=== PATIENT | male | born 1985 | race Caucasian/White ===

== ENCOUNTER 2017-01-31 18:43 | Emergency (ER) | payer MEDICAID ==
--- NOTE | 2017-01-31 19:04 | EDPHY ---
H & P Stated Complaint: Low back pain ~5 mos;fell Tuesday while skateboarding and now it's worse HPI/ROS: CHIEF COMPLAINT: Low back pain HISTORY OF PRESENT ILLNESS: This patient is a healthy 31 year old male arriving today complaining of persistent lower back pain onset 5 months ago with an exacerbation following a fall off his skateboard two weeks ago. He states he has had several past injuries from various sports that have generally resolved in a few months. He has attempted to manage this current pain with acupuncture, Rolfing, massage, and chiropractic interventions, as well as occasional ibuprofen use. He describes his discomfort as dull pain and more like "tightness" at waist level on both sides. He states that he used to have sciatic pain. He currently endorses paresthesias to the back of his left leg above the knee. He denies incontinence, changes in urinary or bowel habits, fever, or other associated symptoms. REVIEW OF SYSTEMS: A ten point review of systems was performed and is negative with the exception of the items mentioned in the HPI. - Personal History Current Tetanus Diphtheria and Acellular Pertussis (TDAP): Yes - Medical/Surgical History PMH: Denies other than chronic back pain. 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 Lives alone. - Physical Exam Exam: General Appearance: Alert. Vital signs reviewed. Blood pressure 167/87, heart rate 112 at triage. Eyes: Pupils equal and round, no conjunctival injection, no discharge. Anicteric. ENT, Mouth: Mucous membranes are moist, no oropharyngeal erythema or edema. Neck: No lymphadenopathy, supple. Respiratory: Lungs are clear to auscultation; no wheezes, rales, or rhonchi. Cardiovascular: Regular rate and rhythm; no murmur, rub, or gallop. Not tachycardic at time of my evaluation. Gastrointestinal: Abdomen is soft and nontender, no masses or organomegaly, bowel sounds normal. Skin: Warm and dry, no rashes on exposed skin, normal color. Back: Nontender to palpation over the thoracolumbar spine. No CVAT. Extremities: No lower extremity edema, no calf tenderness or swelling. Neurological: Alert and oriented. Moving all four extremities easily and equally. No clonus. Strength is 5 over 5 bilaterally with testing of all major motor groups. Sensation is intact to light touch over all 4 extremities. Deep tendon reflexes are 2+ in the biceps and knees bilaterally. Gait is normal. Psychiatric: Normal affect. Constitutional: Initial Vital Signs Temperature (C) 36.7 C 01/31/17 18:45 Heart Rate 112 H 01/31/17 18:45 Respiratory Rate 18 01/31/17 18:45 Blood Pressure 167/87 H 01/31/17 18:45 O2 Sat (%) 97 01/31/17 18:45 O2 Delivery Mode Room Air Allergies/Adverse Reactions: No Known Allergies Allergy (Unverified 01/31/17 18:50) Home Medications: Medication Instructions Recorded NK [No Known Home Meds] 01/31/17 Medical Decision Making - Diagnostics Imaging Results: Lumbar spine x-ray reviewed by me in PACs. There is disc space narrowing at L5- S1. No fracture. Imaging: I viewed and interpreted images myself ED Course/Re-evaluation: This patient is a 31 year old male presenting with an acute exacerbation of his chronic back pain. The patient is insistent that he need an x-ray or an MRI for evaluation of his pain and for referral to a specialist. I explained the criteria for MRI in the emergency setting. Plan to order x-ray to rule out acute process, as he had a fall 2 weeks ago. X-ray lumbar spine read by Dr. Peralta, radiologist. 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 19:49 Reassessed patient. Discussed x-ray result. There is no evidence of an acute fracture. He does not have radicular signs. I do not suspect infection, such as pyelonephritis. He does not appear ill and I am not concerned about the possibility of infection, such as an epidural abscess. Plan to discharge home in good condition with referrals to [facility] as requested. Return precautions discussed. The patient is comfortable with this plan. Differential Diagnosis: Back pain including but not limited to muscular pain, herniated disc, spine fracture, intra-abdominal causes and urinary tract infection. Departure - Departure Disposition: Home, Routine, Self-Care Clinical Impression: Back pain Qualifiers: Back pain location: low back pain Chronicity: acute Back pain laterality: bilateral Sciatica presence: without sciatica Qualified Code(s): M54.5 - Low back pain Condition: Good Instructions: Back Pain (ED), Lower Back Exercises (ED) Additional Instructions: 1. Follow up with your primary care doctor for any additional referral requests. Certain insurance companies require an authorized referral from a primary care provider to cover care from a specialist's office. 2. We have referred you to [facility] and to [facility]. 3. Return to the ED for bowel or bladder problems, numbness or weakness in your legs, or other worsening of condition. Adult Pain Control: We recommend Ibuprofen (Motrin,Advil) for pain control. Dose: Ibuprofen 400mg every 6-8 hours with food Referrals: Misha Hairston MD [Medical Doctor] - As per Instructions Mode East MD [Medical Doctor] - As per Instructions Report Scribed for: Henna Agudelo Report Scribed by: Lynnette Reyez Physician Review and Approval Statement: 01/31/17 19:04 Portions of this note were transcribed by the medical insurance clerk. I, Dr. Henna Agudelo, personally performed the history, physical exam, and medical decision- making; and confirmed the accuracy of the information in the transcribed note.
[2017-01-31 20:16] VITALS: BP 132/75; PULSE 91; RESP 17; TEMP 98.2; O2SAT 96
== END 2017-01-31 20:15 | disposition home or self-care (01) ==
DX: M54.5 Low back pain (principal)

== ENCOUNTER → 2017-07-06 | Outpatient (CLI) | payer OTHER | LOC: FIMAGING 10:56 | DX: R22.2 Localized swelling, mass and lump, trunk (principal) ==

== ENCOUNTER → 2018-01-03 | Outpatient (CLI) | payer OTHER | LOC: FIMAGING 18:24 | PROVIDERS: ATTEND Family Medicine | DX: S92.414A Nondisplaced fracture of proximal phalanx of right great toe, initial encounter for closed fracture (principal) ==

== ENCOUNTER 2018-02-21 11:38 | Day surgery (SDC) | payer OTHER ==
[2018-02-21] MEDS ORDERED: LIDOCAINE 1% 300 MG/30 ML SDV ONE (12:25)
[2018-02-21] MEDS ORDERED: ROPIVACAINE HCL 150 MG/30 ML INJ ONE (12:25)
[2018-02-21] MEDS ORDERED: BUPIVACAINE 0.25% 30 ML SDV ONE (12:25)
[2018-02-21] MEDS ORDERED: BACITRACIN 50,000 UNITS/10 ML SYR IRR ONE (12:25)
[2018-02-21] MEDS ORDERED: DEXAMETHASONE 4 MG/ML VIAL ONE (12:25)
[2018-02-21] MEDS ORDERED: ceFAZolin 2 GM/DEXTROSE 100 ML IV ONE (12:45)
[2018-02-21] MEDS ORDERED: MIDAZOLAM 2 MG/2 ML VIAL ONE (12:46)
[2018-02-21] MEDS ORDERED: fentaNYL 100 MCG/2 ML INJ ONE (12:50)
[2018-02-21] MEDS ORDERED: PROPOFOL 200 MG/20 ML VIAL ONE ×3 (12:51→13:44)
--- NOTE | 2018-02-21 22:31 | GOP ---
[f rep st] OPERATIVE REPORT DATE OF OPERATION: 02/21/2018 SURGEON: Tila Granados DPM CIVIL ENGINEERING DRAFTSPERSON: Debbie Granados DPM. ANESTHESIA: IV sedation with local. ANESTHESIOLOGIST: MD Grant. PREOPERATIVE DIAGNOSIS: Painful hallux rigidus, right foot. POSTOPERATIVE DIAGNOSIS: 1. Painful hallux rigidus, right foot. 2. Low-grade osteoarthritis. PROCEDURE PERFORMED: Cheilectomy, first metatarsophalangeal joint, with decompression osteotomy, dis maryan first metatarsal, right foot. FINDINGS: DESCRIPTION OF PROCEDURE: The patient presented to the hospital approximately an hour and half prior to foot surgery after having been n.p.o. past midnight. The patient's preoperative history and phys ical was reviewed, and there were no contraindications to the proposed procedure. Patient reported n o change in health. The patient was given Ancef 2 g IV 1/2 hour prior to foot surgery. Patient was taken to the OR room and placed in the OR table in a supine position where the appropriat e anesthetic agents were administered. This was supplemented with a local block to the right foot, i nitially utilizing 15 cc of a 1:1 mixture of 1% lidocaine with 0.5% ropivacaine. However, additional local was necessary. An additional 15 cc of 1:1 mix of 1% lidocaine with 0.5% ropivacaine was given in a Chandler block fashion to the base of the first metatarsal. The right lower extremity was then pre pped and draped in the usual aseptic fashion, covered with sterile stockinette. A sterile pneumatic ankle tourniquet was applied and padded well underneath with Webril. Utilizing elevation overlying t he Esmarch bandage, the foot was exsanguinated and the tourniquet was inflated to a pressure of 225 m mHg. The foot was lowered to the orthopedic table. Attention was then directed to the dorsomedial aspect of the first metatarsophalangeal joint where an approximate 5 cm linear longitudinal incision was made just medial to the extensor hallucis longus t endon. Incision was deepened through the skin to the level of subcutaneous tissues and capsular tiss ues taking care to preserve the neurovascular structures. Any bleeders were clamped and cauterized. A linear capsular incision was made in the same plane as the skin incision and the capsular tissues were reflected off the head of the first metatarsal dorsally and medially and from the base of the pr oximal phalanx dorsally, phalanx exposing the hypertrophic bone. The loose osteophyte dorsal to the base of proximal phalanx was resected and placed on the back table. The hypertrophic bone to the bas e of the proximal phalanx and head of the metatarsal was resected with a rongeur and sagittal saw as needed to smooth the surfaces. First metatarsophalangeal joint was inspected, and there was some art icular thinning to the dorsal third of the base of proximal phalanx and head of first metatarsal and a very small osteochondral defect to the central medial aspect of first metatarsal head which was res ected. The remaining cartilage was intact with normal coloration. The surgical site was copiously i rrigated with a sterile saline bacitracin solution. The medial aspect of the first metatarsal head w as then prepared for the 2 osteotomies by creating a smooth surface with a sagittal saw. A 0.045 K-w huan was then advanced in a medial to lateral direction along the plantar distal aspect of the first m etatarsal head to serve as an axis guide. Two osteotomies were then created to the distal first meta tarsal head utilizing the sagittal saw. The first osteotomy was initiated with the K-wire and extend ed dorsally and slightly proximally. The second osteotomy was made just proximal to the first osteot selma so as to create a dorsal based wedge of bone to decompress the first metatarsal head. The bone r esected at its dorsal base was approximately 3 mm in width and tapered toward the K-wire. When the w edge of bone was resected, it appeared as a pie wedge, consistent with the procedure. The K-wire was removed, and drill holes were created to the plantar cortex at the hinge of the osteotomy site so as to create some mobility to the plantar cortex. The surgical site was copiously irrigated again with sterile saline solution. The osteotomy site was then gently closed by applying pressure to the firs t metatarsal head gently. The osteotomy site was then fixated with 2 K-wires for the Arthrex headles s screw system, stabilizing the osteotomy site. A C-arm was utilized to check the alignment of the K -wires and osteotomy site, which was optimal. Utilizing standard Arthrex technique, 2 headless 2.5 s crews measuring 20 mm in length were placed across the osteotomy site in a dorsal distal to plantar p roximal direction along the guidewires. The guidewires were removed and the osteotomy site was stabl e, intact, and well aligned. A C-arm was used to check alignment. There was a lateral ledge of bone to the first metatarsal head which was left intact so as to maintain stability to the first metatars ophalangeal joint. There was no impingement or hindrance of range of motion to the hallux which was smoothed. The capsular tissues were reapproximated with 2-0 and 3-0 Vicryl. The tourniquet was rele ased and there was immediate capillary refill to all digits and there was hemostasis to the surgical site. The subcutaneous tissues were reapproximated with 4-0 Monocryl utilizing interrupted simple meadows tures. The skin was reapproximated utilizing 4-0 Prolene with interrupted horizontal mattress suture s. An additional 6 cc of 0.5% ropivacaine was injected proximal to the osteotomy site. A mildly com pressive dry sterile gauze dressing was applied with Xeroform, 4 x 4 gauze, Nasima, Kerlix, and an Tio wrap. Patient tolerated the procedure and anesthesia well, was transferred to recovery room with vital sign s stable and vascular status intact to the right lower extremity. In the recovery room, he received postoperative home care instructions and was dispensed a Cryo Cuff, instructed on usage. The patient instructed to utilize crutches for ambulation assist and to wear the cast boot at all times for prot ection. He is instructed not to bear weight on the surgical site. The patient is scheduled for his first postoperative visit in 3 days but is to call the office earlier if any questions or problems sh ould arise. The procedure went well without complications. Patient was given a prescription for Oxy Contin delayed release and Percocet to take postoperatively as prescribed for pain. Postoperative ra diographs were ordered prior to discharge. /[id number]/MODL
== END 2018-02-21 17:05 | disposition home or self-care (01) ==
LOC: FSGY 11:38
PROVIDERS: ATTEND Podiatrist
PROC: 0QSN04Z Reposition Right Metatarsal with Internal Fixation Device, Open Approach (ICD-10-PCS; principal; 2018-02-21 13:00)
PROC: 0QBN0ZZ Excision of Right Metatarsal, Open Approach (ICD-10-PCS; principal; 2018-02-21 13:00)
DX: M20.21 Hallux rigidus, right foot (principal); M19.071 Primary osteoarthritis, right ankle and foot; M79.671 Pain in right foot; M21.6X1 Other acquired deformities of right foot; Z87.891 Personal history of nicotine dependence
CPT/HCPCS: C1713; J1100; J2250; J2704; J2795; J3010